=== PATIENT | female | born 1995 | race Hispanic/Latino ===

== ENCOUNTER 2022-02-26 14:27 | Emergency (ER) | payer OTHER, MEDICAID ==
[~2022-02-26] VITALS: Ht 160 cm; Wt 70.3 kg
[2022-02-26 14:35] VITALS: BP 128/71
[2022-02-26 15:01] LABS: BASOPHILS % (AUTO) 0.2 % (0.0-5.0); EOSINOPHILS % (AUTO) 0.9 % (0.0-8.0); HEMATOCRIT 35.9 % (36-48); LYMPHOCYTES % (AUTO) 27.4 % (21.0-51.0); MEAN CORPUSCULAR VOLUME 88.4 fL (79-99); MONOCYTES % (AUTO) 7.6 % (3.0-13.0); NEUTROPHILS % (AUTO) 63.6 % (40.0-77.0); PLATELET COUNT (AUTO) 220 K/uL (130-400); RED BLOOD CELL COUNT(AUTO) 4.06 MIL/uL (4.00-5.50); RED CELL DISTRIBUTION WIDTH 12.7 % (11.0-15.5); WHITE BLOOD COUNT (AUTO) 9.2 K/uL (4.8-10.8)
[2022-02-26 15:09] LABS: APPEARANCE,URINE CLEAR (CLEAR); BILIRUBIN,URINE NEGATIVE (NEGATIVE); COLOR,URINE YELLOW (YELLOW); GLUCOSE, URINE (UA) NEGATIVE (NEGATIVE); KETONES,URINE NEGATIVE (NEGATIVE); LEUKOCYTE ESTERASE ,URINE NEGATIVE (NEGATIVE); NITRATE,URINE NEGATIVE (NEGATIVE); OCCULT BLOOD,URINE NEGATIVE (NEGATIVE); PH,URINE 6.5 (5.0-8.0); PROTEIN,URINE NEGATIVE (NEGATIVE); UROBILINOGEN,URINE 0.2 mg/dL (0.2-1.0)
[2022-02-26 15:11] LABS: CREATININE 0.6 mg/dL (0.5-1.5); POTASSIUM 3.6 mmol/L (3.5-5.1)
[2022-02-26 15:13] LABS: HCG,QUAL RESULT POSITIVE (NEGATIVE)
[2022-02-26 15:37] LABS: ALBUMIN 3.4 g/dL (3.5-5.0); BILIRUBIN,TOTAL 0.2 mg/dL (0.2-1.0); TOTAL PROTEIN, SERUM 7.7 g/dL (6.0-8.3)
[2022-02-27] MEDS ORDERED: PRENATAL PO (13:04)
== END 2022-02-26 17:16 | disposition home or self-care (01) ==
LOC: EDH 14:27
DX: O36.4XX0 Maternal care for intrauterine death, not applicable or unspecified (principal); Z3A.12 12 weeks gestation of pregnancy
CPT/HCPCS: 36415; 80053; 81003; 81025; 84702; 85025; 86900; 86901

== ENCOUNTER 2022-02-28 06:07 | Day surgery (SDC) | payer MEDICAID ==
[~2022-02-28] VITALS: Ht 160 cm; Wt 70.8 kg
[~2022-02-28 06:07] MED LIST: LACTATED RINGERS 1000ML 1,000 ML IV ONE; PRENATAL PO
[2022-02-28] MEDS ORDERED: CLINDAMYCIN IVPB 600MG/50ML 50 ML IV ONE (06:09)
[2022-02-28 06:22] VITALS: BP 130/80
[2022-02-28] MEDS ORDERED: FENTANYL CITRATE PF 50 MCG/1 ML 2ML VIAL ONE ×2 (07:12→07:59)
[2022-02-28] MEDS ORDERED: PROPOFOL 10 MG/ML 20ML VIAL IV ONE (07:12)
[2022-02-28] MEDS ORDERED: MEPERIDINE-PF 50 MG/ML SYG ONE (07:12)
[2022-02-28] MEDS ORDERED: MIDAZOLAM HCL 1 MG/ML 2ML VIAL ONE (07:12)
[2022-02-28] MEDS ORDERED: ONDANSETRON 4MG INJ ONE (07:19)
[2022-02-28] MEDS ORDERED: ROCURONIUM 10MG/1ML SYR 10 MG/ML ML ONE (07:49)
[2022-02-28] MEDS ORDERED: OXYTOCIN 10 USP UNITS/ML ONE (07:56)
[2022-02-28] MEDS ORDERED: METHYLERGONOVINE MALEATE 0.2 MG/1 ML ML ONE (08:02)
[2022-02-28] MEDS ORDERED: CLINDAMYCIN IVPB 600MG/50ML 50 ML IV SCH (09:00)
[2022-02-28 09:15] VITALS: BP 108/66
[2022-02-28 09:30] VITALS: BP 110/66
[2022-02-28 09:45] VITALS: BP 108/66
== END 2022-02-28 09:50 | disposition home or self-care (01) ==
LOC: SUH 06:07 → DAH 06:07 → SUH 09:50
PROVIDERS: ATTEND Obstetrics & Gynecology
DX: O02.1 Missed abortion (principal); N85.4 Malposition of uterus; Z88.0 Allergy status to penicillin; Z79.899 Other long term (current) drug therapy
CPT/HCPCS: 59820; 87635; 88305; A4215; A4221; A4222; A4223; A4351; A4663; C1769; C9803; J2210; J2250; J2405; J2590; J3010 ×2; J3490 ×3; J7030; J7120; 92960; J2175; J2704

== ENCOUNTER 2023-08-14 12:44 | Emergency (ER) | payer MEDICAID ==
[~2023-08-14] VITALS: Ht 157.5 cm; Wt 83.0 kg
[~2023-08-14 12:44] MED LIST changes: -LACTATED RINGERS 1000ML 1,000 ML IV ONE
[2023-08-14 13:17] LABS: APPEARANCE,URINE CLEAR (CLEAR); BILIRUBIN,URINE NEGATIVE (NEGATIVE); COLOR,URINE COLORLESS (YELLOW); GLUCOSE, URINE (UA) NEGATIVE (NEGATIVE); KETONES,URINE NEGATIVE (NEGATIVE); LEUKOCYTE ESTERASE ,URINE NEGATIVE Leu/uL (NEGATIVE); NITRATE,URINE NEGATIVE (NEGATIVE); PROTEIN,URINE NEGATIVE (NEGATIVE); UROBILINOGEN,URINE 0.2 mg/dL (0.2-1.0)
[2023-08-14 13:19] LABS: ADD UA MICROSCOPIC NO
[2023-08-14 13:37] LABS: BASOPHILS # (AUTO) 0.03 K/uL (0.00-0.20); BASOPHILS % (AUTO) 0.3 % (0.0-5.0); EOSINOPHILS # (AUTO) 0.12 K/uL (0.00-0.70); EOSINOPHILS % (AUTO) 1.3 % (0.0-8.0); HEMATOCRIT 40.2 % (36-48); IMMATURE GRANULOCYTE ABSOLUTE 0.03 K/uL (0-1); LYMPHOCYTES # (AUTO) 2.5 K/uL (1.0-4.8); LYMPHOCYTES % (AUTO) 27.9 % (21.0-51.0); MEAN CORPUSCULAR HEMOGLOBIN 29.9 pg (27.0-33.0); MEAN CORPUSCULAR HGB CONC 34.3 g/dL (32.0-36.0); MONOCYTES # (AUTO) 0.6 K/uL (0.1-1.0); MONOCYTES % (AUTO) 6.5 % (3.0-13.0); NEUTROPHILS # (AUTO) 5.7 K/uL (1.8-7.7); NEUTROPHILS % (AUTO) 63.7 % (40.0-77.0); PLATELET COUNT (AUTO) 261 K/uL (130-400); RED BLOOD CELL COUNT(AUTO) 4.62 MIL/uL (4.00-5.50)
[2023-08-14 13:46] LABS: CREATININE 0.8 mg/dL (0.5-1.5); POTASSIUM 3.6 mmol/L (3.5-5.1)
[2023-08-14 13:51] LABS: ALBUMIN 3.9 g/dL (3.5-5.0); BILIRUBIN,TOTAL 0.5 mg/dL (0.2-1.0); TOTAL PROTEIN, SERUM 8.4 g/dL (6.0-8.3)
[2023-08-14] MEDS ORDERED: FAMO20TA8 PO (14:34)
[2023-08-14 15:24] VITALS: BP 126/78; PULSE 84; RESP 15; O2SAT 99
== END 2023-08-14 15:27 | disposition home or self-care (01) ==
LOC: EDH 12:44
DX: K29.70 Gastritis, unspecified, without bleeding (principal); Z88.0 Allergy status to penicillin
CPT/HCPCS: 36415; 76705; 80053; 81003; 81025; 83690; 85025